=== PATIENT | female | born 1980 | race Caucasian/White ===

== ENCOUNTER → 2016-12-17 | Outpatient (CLI) | payer OTHER ==
--- NOTE | 2016-12-17 10:56 | DI ---
Indication: ITS.REASON: K31.84 Gastric diverticu; E10.65 TYPE 1 DIABETES W/ HYPERGLYCEMIA PROCEDURE: NM GASTRIC EMPTYING STUDY: Encounter: Initial Comparison: None. Technique: The patient consumed a standard meal labeled with approximately 2.2 mCi of Tc-99m sulfur colloid. Anterior and posterior planar images were obtained and time/activity curves were calculated. Findings: Radiotracer is seen to progress minimally from the gastric fundus to the antrum and into the small bowel. The calculated T-1/2 gastric emptying time is prolonged at approximately 238 minutes (normal range 45-110 minutes). Impression: Delayed gastric emptying consistent with gastroparesis. .
== END ==
LOC: IMA 07:29
PROVIDERS: ATTEND Internal Medicine Endocrinology, Diabetes & Metabolism
DX: K31.4 Gastric diverticulum (principal); E10.65 Type 1 diabetes mellitus with hyperglycemia
CPT/HCPCS: 78264; A9541